=== PATIENT | male | born 1990 | race African-American/Black ===

== ENCOUNTER 2016-10-01 01:13 | Emergency (ER) | payer OTHER | END 2016-10-01 02:49 | disposition home or self-care (01) | LOC: FER 01:13 | DX: H16.011 Central corneal ulcer, right eye (principal) | CPT/HCPCS: 99283 ==

== ENCOUNTER 2020-08-02 20:59 | Emergency (ER) | payer OTHER ==
[2020-08-02] MEDS ORDERED: PREDNISONE 20MG20 MG PO (23:00)
[2020-08-02] MEDS ORDERED: CYCLOBENZAPRINE10 MG PO (23:00)
== END 2020-08-02 23:10 | disposition home or self-care (01) ==
LOC: FER 20:59
DX: S39.012A Strain of muscle, fascia and tendon of lower back, initial encounter (principal); M51.36 Other intervertebral disc degeneration, lumbar region; M25.551 Pain in right hip; Z98.890 Other specified postprocedural states; X58.XXXA Exposure to other specified factors, initial encounter; Y93.44 Activity, trampolining
CPT/HCPCS: 72131; 73502; 96372; J1100; J1885

== ENCOUNTER 2021-06-15 17:10 | Emergency (ER) | payer OTHER ==
[~2021-06-15 17:10] MED LIST: CYCLOBENZAPRINE10 MG PO; PREDNISONE 20MG20 MG PO
[2021-06-15] MEDS ORDERED: CYCLOBENZAPRINE10 MG PO (18:15)
[2021-06-15] MEDS ORDERED: MEDROL 4MG DOSEP4 MG PO (18:15)
== END 2021-06-15 18:39 | disposition home or self-care (01) ==
LOC: FER 17:10
DX: S39.012A Strain of muscle, fascia and tendon of lower back, initial encounter (principal)
CPT/HCPCS: 96372; 99283; J1100; J1885